=== PATIENT | male | born 1965 | race African-American/Black ===

== ENCOUNTER 2017-08-06 23:01 | Emergency (ER) | payer OTHER ==
[~2017-08-06] VITALS: Ht 172.7 cm; Wt 82.0 kg
[2017-08-06 23:05] VITALS: BP 146/87
== END 2017-08-07 00:28 | disposition left against medical advice (07) ==
LOC: ER 23:01
DX: Z53.21 Procedure and treatment not carried out due to patient leaving prior to being seen by health care provider (principal); F17.200 Nicotine dependence, unspecified, uncomplicated; Z85.89 Personal history of malignant neoplasm of other organs and systems